=== PATIENT | male | born 1980 | race Caucasian/White ===

== ENCOUNTER 2018-08-23 15:42 | Emergency (ER) | payer MEDICAID ==
[2018-08-23 16:01] VITALS: TEMP 97.3; O2SAT 99
[2018-08-23] MEDS ORDERED: Lidocaine 5% Patch TD STA (16:33)
--- NOTE | 2018-08-23 16:34 | C.PDOC ---
History Of Present Illness 38 y/o male comes in to ED complaining of lower back pain since yesterday. Patient denies any trauma or heavy lifting, radiation of pain, saddle anesthesia, abdominal pain, bladder or bowel dysfunction, or other symptoms. Time Seen by Provider: 08/23/18 16:16 Chief Complaint (Nursing): Back Pain History Per: Patient History/Exam Limitations: no limitations Onset/Duration Of Symptoms: Days Current Symptoms Are (Timing): Still Present Past Medical History Reviewed: Historical Data, Nursing Documentation, Vital Signs Vital Signs: Last Vital Signs Temp 97.3 F L 08/23/18 16:00 Pulse 66 08/23/18 16:00 Resp 16 08/23/18 16:00 BP 124/79 08/23/18 16:00 Pulse Ox 99 08/23/18 16:00 - Medical History PMH: Sleep Apnea Family History: States: No Known Family Hx - Social History Hx Alcohol Use: No Hx Substance Use: No - Immunization History Hx Tetanus Toxoid Vaccination: No Hx Influenza Vaccination: No Hx Pneumococcal Vaccination: No Review Of Systems Constitutional: Negative for: Fever, Chills Gastrointestinal: Negative for: Abdominal Pain Genitourinary: Negative for: Dysuria, Hematuria Musculoskeletal: Positive for: Back Pain (lower back). Negative for: Leg Pain Neurological: Negative for: Other (saddle anesthesia) Physical Exam - Physical Exam Appears: Non-toxic, No Acute Distress Skin: Warm, Dry Head: Atraumatic, Normacephalic Eye(s): bilateral: Normal Inspection Oral Mucosa: Moist Neck: No Midline Cervical Tenderness Gastrointestinal/Abdominal: Soft, No Tenderness Back: Other (Tenderness to right paralumbar spine) Extremity: Bilateral: Atraumatic, Normal Color And Temperature, Normal ROM Neurological/Psych: Oriented x3, Normal Speech, Normal Motor, Normal Sensation ED Course And Treatment O2 Sat by Pulse Oximetry: 99 (RA) Pulse Ox Interpretation: Normal Medical Decision Making Medical Decision Making: Plan: --Tylenol PO --Lidoderm patch pt with pain to right lumbar area, given tylenol and lidoderm patch. feels better. d/c home with clinic fl/u Disposition Counseled Patient/Family Regarding: Diagnosis, Need For Followup, Rx Given - Disposition Referrals: [facility] [Outside] [facility] [Outside] Disposition: HOME/ ROUTINE Disposition Time: 17:20 Condition: GOOD Additional Instructions: Remove patch after 12 hours. Tylenol ofr pain. Follow up with medical clinic next week. Return for worse symptoms. Prescriptions: Acetaminophen [Tylenol 325mg tab] 650 mg PO Q6 #30 tab Instructions: Low Back Pain (DC) Forms: [facility] (Albanian), General Discharge Instructions - Clinical Impression Clinical Impression: Lumbar sprain - PA / TECHNICAL STAFF ASSISTANT / Resident Statement MD/DO has reviewed & agrees with the documentation as recorded. - Scribe Statement The provider has reviewed the documentation as recorded by the Scribe Chrystal Bonilla All medical record entries made by the Sukhwinderibsigrid were at my direction and personally dictated by me. I have reviewed the chart and agree that the record accurately reflects my personal performance of the history, physical exam, medical decision making, and the department course for this patient. I have also personally directed, reviewed, and agree with the discharge instructions and disposition.
[2018-08-23] MEDS ORDERED: Lidocaine 5% Patch TD ONE (16:43)
[2018-08-23 17:26] VITALS: BP 115/73; PULSE 65; RESP 17
== END 2018-08-23 17:29 | disposition home or self-care (01) ==
LOC: C.ER 15:42
DX: S33.5XXA Sprain of ligaments of lumbar spine, initial encounter (principal); X58.XXXA Exposure to other specified factors, initial encounter

== ENCOUNTER 2018-10-24 01:25 | Emergency (ER) | payer MEDICAID, OTHER ==
[2018-10-24 01:33] VITALS: TEMP 97.9
[2018-10-24] MEDS ORDERED: Albuterol 0.083% Inhal Sol (2.5 mg/3 mL) UD INH STA (01:52)
[2018-10-24] MEDS ORDERED: Albuterol-Ipratrop 3 mg / 0.5 (3 ml) UD ONE (02:03)
[2018-10-24] MEDS ORDERED: Albuterol HFA 90 mcg/actuation (8 g) INH STA (03:05)
--- NOTE | 2018-10-24 03:07 | C.PDOC ---
History Of Present Illness 38 year old male presents to the ED c/o on and off SOB that started on 10/06. Patient was seen at [place] [facility] on 10/06 for SOB, patient had a cardiac workup done at the time which was negative. Patient states he was discharged with prescription for an inhaler. However he reports being unable to picking supervisor his inhaler due to transportation issues. Patient denies fever, chills, rash, headache, CP< palpitations, nausea, vomit, weakness. Time Seen by Provider: 10/24/18 01:34 Chief Complaint (Nursing): Shortness Of Breath History Per: Patient History/Exam Limitations: no limitations Onset/Duration Of Symptoms: Days (10/06) Current Symptoms Are (Timing): Still Present Initiating Event: Upper Respiratory Illness Quality: Tightness Current Respiratory Medications: See Home Med List Reports Recently: Seen In ED ([place] [facility] 10/06) Recent travel outside of the [place]: No Additional History Per: Patient Past Medical History Reviewed: Historical Data, Nursing Documentation, Vital Signs Vital Signs: Last Vital Signs Temp 97.9 F 10/24/18 01:29 Pulse 78 10/24/18 01:29 Resp 20 10/24/18 01:56 BP 153/89 H 10/24/18 01:29 Pulse Ox 95 10/24/18 01:56 - Medical History PMH: HTN, Sleep Apnea Denies: Diabetes, Deep Vein Thrombosis, Hepatitis, HIV, Hypercholesterolemia, Hyperlipidemia, Pulmonary Embolism, Seizures, Sexually Transmitted Disease Surgical History: No Surg Hx Family History: States: Unknown Family Hx - Social History Hx Alcohol Use: No Hx Substance Use: No - Immunization History Hx Tetanus Toxoid Vaccination: No Hx Influenza Vaccination: No Hx Pneumococcal Vaccination: No Review Of Systems Constitutional: Negative for: Fever, Chills, Weakness Eyes: Negative for: Redness ENT: Negative for: Mouth Swelling Respiratory: Positive for: Shortness of Breath. Negative for: Cough Gastrointestinal: Negative for: Nausea, Vomiting, Diarrhea Skin: Negative for: Rash Neurological: Negative for: Weakness, Numbness, Headache, Dizziness Physical Exam - Physical Exam Appears: Well, Non-toxic, No Acute Distress Skin: Normal Color, Warm, No Rash Head: Atraumatic, Normacephalic Eye(s): bilateral: Normal Inspection (no scleral icterus), PERRL, EOMI Oral Mucosa: Moist Neck: Normal ROM, Supple Chest: Symmetrical Respiratory: No Accessory Muscle Use, No Wheezing, Other (normal inspiratory effort) Extremity: Normal ROM (x4), No Pedal Edema Neurological/Psych: Oriented x3, Normal Speech ED Course And Treatment O2 Sat by Pulse Oximetry: 95 (ON RA) Pulse Ox Interpretation: Normal Medical Decision Making Medical Decision Making: Plan: * Nebulizer treatment While in the ED patient was sleeping comfortably, requesting food. Patient not wheezing, breathing without difficulty. Patient given an inhaler to use. Disposition Counseled Patient/Family Regarding: Diagnosis, Need For Followup, Rx Given - Disposition Referrals: [facility] [Outside] Disposition: HOME/ ROUTINE Disposition Time: 03:07 Condition: IMPROVED Instructions: Shortness of Breath (Dyspnea) (DC) Forms: [facility] (Bhutanese), General Discharge Instructions - Clinical Impression Clinical Impression: SOB (shortness of breath) - PA / EXECUTIVE VICE PRESIDENT / Resident Statement MD/DO has reviewed & agrees with the documentation as recorded. - Scribe Statement The provider has reviewed the documentation as recorded by the Scribe Rio Alvarado All medical record entries made by the Scribe were at my direction and personally dictated by me. I have reviewed the chart and agree that the record accurately reflects my personal performance of the history, physical exam, medical decision making, and the department course for this patient. I have also personally directed, reviewed, and agree with the discharge instructions and disposition.
[2018-10-24 04:33] VITALS: BP 140/80; PULSE 74; RESP 14; O2SAT 96
== END 2018-10-24 04:33 | disposition home or self-care (01) ==
LOC: C.ER 01:25
DX: R06.02 Shortness of breath (principal); I10 Essential (primary) hypertension

== ENCOUNTER 2018-11-01 00:49 | Emergency (ER) | payer OTHER ==
[2018-11-01 00:51] VITALS: BMI 21.5
[2018-11-01 01:00] VITALS: RESP 18
--- NOTE | 2018-11-01 01:06 | C.PDOC ---
History Of Present Illness Patient presents requesting a place to spend the night. Denies any physical complaints at this time. Time Seen by Provider: 11/01/18 01:06 Chief Complaint (Nursing): Medical Clearance History Per: Patient History/Exam Limitations: no limitations Onset/Duration Of Symptoms: Hrs Severity: None Pain Scale Rating Of: 0 Recent travel outside of the [place]: No Past Medical History Reviewed: Historical Data, Nursing Documentation, Vital Signs Vital Signs: Last Vital Signs Temp 97.4 F L 11/01/18 00:58 Pulse 71 11/01/18 00:58 Resp 18 11/01/18 00:58 BP 129/82 11/01/18 00:58 Pulse Ox 100 11/01/18 00:58 - Medical History PMH: HTN, Sleep Apnea Denies: Diabetes, Deep Vein Thrombosis, Hepatitis, HIV, Hypercholesterolemia, Hyperlipidemia, Pulmonary Embolism, Seizures, Sexually Transmitted Disease Family History: States: No Known Family Hx - Social History Hx Alcohol Use: No Hx Substance Use: No - Immunization History Hx Tetanus Toxoid Vaccination: No Hx Influenza Vaccination: No Hx Pneumococcal Vaccination: No Review Of Systems Constitutional: Negative for: Fever, Chills Cardiovascular: Negative for: Chest Pain, Palpitations Respiratory: Negative for: Cough, Shortness of Breath Gastrointestinal: Negative for: Nausea, Vomiting Neurological: Negative for: Weakness, Numbness Physical Exam - Physical Exam Appears: Non-toxic, Other (No sign of injury) Skin: Warm, Dry Head: Normacephalic Oral Mucosa: Moist Chest: Symmetrical, No Tenderness Cardiovascular: Rhythm Regular Respiratory: No Rales, No Rhonchi, No Wheezing Gastrointestinal/Abdominal: Soft, No Tenderness Neurological/Psych: Oriented x3 ED Course And Treatment O2 Sat by Pulse Oximetry: 100 (Room air) Pulse Ox Interpretation: Normal Reevaluation Time: 05:26 Reassessment Condition: Improved Disposition Counseled Patient/Family Regarding: Studies Performed, Diagnosis, Need For Followup - Disposition Referrals: [facility] [Outside] Disposition: HOME/ ROUTINE Disposition Time: 01:06 Condition: FAIR Forms: [facility] (Kyrgyz), General Discharge Instructions - Clinical Impression Clinical Impression: Medical assessment - Scribe Statement The provider has reviewed the documentation as recorded by the Scribe Armand Santiago All medical record entries made by the Scribe were at my direction and personally dictated by me. I have reviewed the chart and agree that the record accurately reflects my personal performance of the history, physical exam, medical decision making, and the department course for this patient. I have also personally directed, reviewed, and agree with the discharge instructions and disposition.
[2018-11-01 04:00] VITALS: BP 119/67; PULSE 86; TEMP 98.3
[2018-11-01 05:26] VITALS: O2SAT 100
== END 2018-11-01 05:58 | disposition home or self-care (01) ==
LOC: C.ER 00:49
DX: Z00.00 Encounter for general adult medical examination without abnormal findings (principal); I10 Essential (primary) hypertension; G47.30 Sleep apnea, unspecified

== ENCOUNTER 2018-11-08 23:50 | Emergency (ER) | payer OTHER ==
[2018-11-08 23:51] VITALS: BMI 21.5
[2018-11-08 23:59] VITALS: BP 110/74; PULSE 68; RESP 20; TEMP 98.1; O2SAT 100
--- NOTE | 2018-11-09 00:20 | C.PDOC ---
History Of Present Illness 38-year-old male has presented to the ED multiple times in the past for generalized complaints. Patient is homeless and usually requests a place to sleep for the night. Upon arriving in ED triage today, patient stated he has been having cough and fever for 3 weeks. Upon my assessment, patient seems to change his chief complaint every time he is asked, sometimes reporting knee pain, abdominal pain, inability to walk, difficulty with breathing, or stating that he just does not feel well. Patient denies recent trauma. Time Seen by Provider: 11/09/18 00:02 Chief Complaint (Nursing): Cough, Cold, Congestion History Per: Patient History/Exam Limitations: no limitations Onset/Duration Of Symptoms: Days Current Symptoms Are (Timing): Still Present Past Medical History Reviewed: Historical Data, Nursing Documentation, Vital Signs Vital Signs: Last Vital Signs Temp 98.1 F 11/08/18 23:59 Pulse 68 11/08/18 23:59 Resp 20 11/08/18 23:59 BP 110/74 11/08/18 23:59 Pulse Ox 100 11/08/18 23:59 Primary Care Provider: Non [facility] Provider, - Medical History PMH: HTN, Sleep Apnea Denies: Diabetes, Deep Vein Thrombosis, Hepatitis, HIV, Hypercholesterolemia, Hyperlipidemia, Pulmonary Embolism, Seizures, Sexually Transmitted Disease Surgical History: No Surg Hx Family History: States: Unknown Family Hx - Social History Hx Alcohol Use: No Hx Substance Use: No - Immunization History Hx Tetanus Toxoid Vaccination: No Hx Influenza Vaccination: No Hx Pneumococcal Vaccination: No Review Of Systems Review Of Systems: ROS cannot be obtained secondary to pt's inabilty to answer questions. (patient unreliable for review of systems) Physical Exam - Physical Exam Appears: Non-toxic, No Acute Distress, Other (sleeping comfortably in chair ) Skin: Normal Color, Warm, No Rash Head: Atraumatic, Normacephalic Oral Mucosa: Moist Neck: Supple Chest: Symmetrical, No Deformity Cardiovascular: Rhythm Regular Respiratory: No Accessory Muscle Use, Other (normal inspiratory effort, speaking in full sentences ) Extremity: Normal ROM Neurological/Psych: Oriented x3 ED Course And Treatment O2 Sat by Pulse Oximetry: 100 (on RA) Pulse Ox Interpretation: Normal Medical Decision Making Medical Decision Making: Given that patient has multiple vague complaints couple with his multiple visits to the ED since moving from [place], will refer patient to the outpatient clinic. Patient was given discharge papers and threw himself onto the floor because he did not want to leave. Patient was escorted out by ED security. Disposition Counseled Patient/Family Regarding: Diagnosis, Need For Followup - Disposition Referrals: [facility] [Outside] Disposition: HOME/ ROUTINE Disposition Time: 00:20 Condition: STABLE Instructions: Viral Upper Respiratory Infection, Adult (DC) Forms: [facility] (Kiswahili), General Discharge Instructions - Clinical Impression Clinical Impression: Homelessness, Upper respiratory infection - PA / ORNAMENT MAKER HAND / Resident Statement MD/DO has reviewed & agrees with the documentation as recorded. - Scribe Statement The provider has reviewed the documentation as recorded by the Scribe (Kaur Eaton) All medical record entries made by the Scribe were at my direction and personally dictated by me. I have reviewed the chart and agree that the record accurately reflects my personal performance of the history, physical exam, medical decision making, and the department course for this patient. I have also personally directed, reviewed, and agree with the discharge instructions and disposition.
== END 2018-11-09 00:53 | disposition home or self-care (01) ==
LOC: C.ER 23:50
DX: J06.9 Acute upper respiratory infection, unspecified (principal); Z59.0 Homelessness